=== PATIENT | female | born 1980 | race Caucasian/White ===

== ENCOUNTER 2016-08-02 15:54 | Emergency (ER) | payer SELFPAY ==
[~2016-08-02] VITALS: Ht 160 cm; Wt 68.0 kg
[~2016-08-02 15:54] MED LIST: BACT800T5 PO; FLAG500T PO
[2016-08-02 15:55] VITALS: BP 110/76; PULSE 62; RESP 14; TEMP 98.6; O2SAT 100
[2016-08-02 18:16] LABS: BLOOD, URINE NEG (NEG); COMMENT (UR) CULTURE INDICATED; CULTURE IF INDICATED CULTURE INDICATED; GLUCOSE,URINE NEG (NEG); KETONE, URINE NEG (NEG); MUCUS URINE FEW /lpf (OCC); NITRITE,URINE NEG (NEG); SQUAMOUS EPITHELIAL CELL URINE 2 /hpf (0-5); URINE COLOR YELLOW (YELLW/STRAW)
[2016-08-02] MEDS ORDERED: cefTRIAXone 250 MG VIAL IM ONE (18:30)
[2016-08-02] MEDS ORDERED: AZITHROMYCIN PWD FOR SUSP 1 GM PACKET PO ONE (18:30)
[2016-08-02] MEDS ORDERED: LIDOCAINE HCL 1% 50 ML VIAL IM ONE (18:30)
[2016-08-02] MEDS ORDERED: metroNIDAZOLE 500 MG TAB PO ONE (18:30)
[2016-08-02] MEDS ORDERED: ONDANSETRON ODT 4 MG TAB PO ONE (18:30)
[2016-08-02] MEDS ORDERED: DOXY100C PO (18:43)
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
[2016-08-02 19:48] LABS: CHLAMYDIA PCR NOT DETECTED (NOT DETECT); NEISSERIA PCR DETECTED (NOT DETECT)
== END 2016-08-02 18:50 | disposition home or self-care (01) ==
LOC: NETRI 15:54
DX: R10.84 Generalized abdominal pain (principal); N89.8 Other specified noninflammatory disorders of vagina; R53.81 Other malaise; N93.9 Abnormal uterine and vaginal bleeding, unspecified; F17.200 Nicotine dependence, unspecified, uncomplicated
CPT/HCPCS: 81001; 84703; 87086; 87210; 87491; 87591; 96372; 99284; J0696

== ENCOUNTER 2016-10-12 11:22 | Emergency (ER) | payer SELFPAY ==
[~2016-10-12] VITALS: Ht 160 cm; Wt 76.9 kg
[~2016-10-12 11:22] MED LIST changes: +DOXY100C PO
[2016-10-12 11:25] VITALS: BP 117/66; PULSE 66; RESP 14; TEMP 98; O2SAT 98
[2016-10-12 12:05] LABS: BLOOD, URINE NEG (NEG); COMMENT (UR) CULT NOT INDICATED; CULTURE IF INDICATED CULT NOT INDICATED; GLUCOSE,URINE NEG (NEG); KETONE, URINE NEG (NEG); MUCUS URINE FEW /lpf (OCC); NITRITE,URINE NEG (NEG); PH, URINE 6.5 (5.0-8.5); SQUAMOUS EPITHELIAL CELL URINE 4 /hpf (0-5); URINE COLOR YELLOW (YELLW/STRAW)
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
[2016-10-12] MEDS ORDERED: AZITHROMYCIN PWD FOR SUSP 1 GM PACKET PO ONE (14:00)
[2016-10-12] MEDS ORDERED: LIDOCAINE HCL 1% 50 ML VIAL IM ONE (14:00)
[2016-10-12] MEDS ORDERED: cefTRIAXone 250 MG VIAL IM ONE (14:00)
[2016-10-12 16:07] LABS: CHLAMYDIA PCR NOT DETECTED (NOT DETECT); NEISSERIA PCR NOT DETECTED (NOT DETECT)
== END 2016-10-12 14:53 | disposition home or self-care (01) ==
LOC: NEPB 11:22
DX: R10.30 Lower abdominal pain, unspecified (principal); F17.210 Nicotine dependence, cigarettes, uncomplicated
CPT/HCPCS: 81001; 84703; 87210; 87491; 87591; 96372; 99284; J0696

== ENCOUNTER 2017-02-24 13:58 | Emergency (ER) | payer SELFPAY ==
[2017-02-24 13:59] VITALS: BP 122/80; PULSE 93; RESP 16; TEMP 98.2; O2SAT 98
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
--- NOTE | 2017-02-24 15:10 | PD ---
HPI . rash on buttocks x few days Chief Complaint: Skin Problem Time Seen by Provider: 15:10 Travel History International Travel<30 days: No Contact w/Intl Traveler<30days: No Traveled to known affect area: No History of Present Illness HPI 36-year-old female with no significant past medical history other than drug use now in remission for 18 months here with complaints of a small blister-like rash to her left buttocks. Patient tells me that been there for proximally 2-3 days and has been causing some pain in that area. She denies any high risk sexual behaviors and reports sex with only her girlfriend. She also complains of an intermittent headache for the past 3 days. She initially rated the pain as 10/10, but tells me that it's more like 9/10 when it's at its peak. She misses some facial pressure. She denies any fever or chills. This is not the worst headache of life. She has no other complaints. PFSH Past Medical History Asthma: Yes Bipolar Disorder: Yes : 4 Para: 1 Miscarriage: 0 : 2 Social History Alcohol Use: No Tobacco Use: Yes (/2 PPD) Substance Use: No (H/O) Allergies-Medications (Allergen,Severity, Reaction): Coded Allergies: No Known Allergies (Verified , 10/12/16) Reported Meds & Prescriptions Reported Meds & Active Scripts Active Acyclovir 800 Mg Tab 800 Mg PO 5 TIMES A DAY 7 Days Review of Systems General / Constitutional: No: Fever Eyes: No: Visual changes HENT: Positive: Headaches Cardiovascular: No: Chest Pain or Discomfort Respiratory: No: Shortness of Breath Gastrointestinal: No: Abdominal Pain Genitourinary: No: Dysuria Musculoskeletal: No: Pain Skin: Positive Rash Neurologic: No: Weakness Psychiatric: No: Depression Endocrine: No: Polydipsia Hematologic/Lymphatic: No: Easy Bruising Physical Exam Narrative GENERAL: AAO x 3, no acute distress, Well-nourished, well-developed patient. SKIN: Warm and dry. Left buttocks there is a small quarter size area of coalesced blisters appear shingles like. No evidence of infection. HEAD: Normocephalic and atraumatic. EYES: No scleral icterus. No injection or drainage. EOM intact, PERRLA ENT: No nasal drainage noted. Mucous membranes pink. Airway patent. TM clear effusions bilaterally, no facial tenderness to palpation NECK: Supple, trachea midline. No JVD. No lymphadenopathy CARDIOVASCULAR: Regular rate and rhythm without murmurs, gallops, or rubs. RESPIRATORY: Breath sounds equal bilaterally. No accessory muscle use. No rhonchi or rales. No wheezing GASTROINTESTINAL: visual inspection normal EXTREMITIES: No cyanosis or edema. BACK: No obvious deformity. NEURO: CN II-12 intact, radio station engineer strength normal b/l, UE and LE 5/5, no focal deficits, PSYCH: AAO x 3, normal affect. Data Data Last Documented VS Vital Signs Date Time Temp Pulse Resp B/P Pulse Ox O2 Delivery O2 Flow Rate FiO2 02/24/17 13:59 98.2 93 16 122/80 98 Orders Ketorolac Inj (Toradol Inj) (02/24/17 15:15) [facility] Medical Decision Making Medical Screen Exam Complete: Yes Emergency Medical Condition: Yes Medical Record Reviewed: Yes Differential Diagnosis Shingles, less likely HSV-2, less likely cellulitis, sinus headache, cluster headache, tension headache Narrative Course 36-year-old female here with what appears to be shingles to her left buttocks. She also reports a headache and this seems more sinus related. On examination she does have some clear effusions in her TM. I've advised her that she can try some [id number] Tylenol, Motrin or Sudafed for relief. I advised her for headache returns or worsens, go to the nearest emergency department. I also recommend follow-up with primary care provider. She does appear to have shingles and I provided her with some antivirals upon discharge. We discussed modes of transmission. Patient verbalized understanding of instructions, questions were answered, and thanked me for their care. I advised them if their condition worsens, please return to the nearest emergency room for further care. Diagnosis Primary Impression: Shingles Qualified Code: B02.9 - Herpes zoster without complication Additional Impression: Sinus headache Patient Instructions: General Instructions Additional Instructions: Follow-up with your primary care provider as we discussed. Please return to emergency department if your symptoms return or worsen. Follow up with your primary care provider. Take medications as prescribed. You can use [id number] Motrin or Tylenol as needed for headache. You can also try some Sudafed to see if this helps improve your symptoms. Med/Other Pt SpecificInfo: Prescription(s) given Scripts Acyclovir 800 Mg [id number] Mg PO 5 TIMES A DAY 7 Days Ref 0 Prov:Cinthia Garcia MD 02/24/17 Disposition: 01 DISCHARGE HOME Condition: Stable Haily Juarez Feb 24, 2017 15:10
[2017-02-24] MEDS ORDERED: ACYC800T PO (15:12)
[2017-02-24] MEDS ORDERED: KETOROLAC TROMETHAMINE 60 MG/2 ML (IM) VIAL IM ONE (15:15)
== END 2017-02-24 15:31 | disposition home or self-care (01) ==
LOC: NEPD 13:58
DX: B02.9 Zoster without complications (principal); R51 Headache; J45.909 Unspecified asthma, uncomplicated; F31.9 Bipolar disorder, unspecified
CPT/HCPCS: 96372; 99284; J1885

== ENCOUNTER 2017-08-18 11:42 | Emergency (ER) | payer SELFPAY ==
[~2017-08-18] VITALS: Ht 160 cm; Wt 80.0 kg
[~2017-08-18 11:42] MED LIST changes: +ACYC800T PO; -BACT800T5 PO; -DOXY100C PO; -FLAG500T PO
[2017-08-18 11:43] VITALS: BP 116/74; PULSE 72; RESP 14; TEMP 98.2; O2SAT 98
--- NOTE | 2017-08-18 12:00 | PD ---
HPI Chief Complaint: Cold / Flu Symptoms Time Seen by Provider: 11:53 Travel History International Travel<30 days: No Contact w/Intl Traveler<30days: No Traveled to known affect area: No History of Present Illness HPI 37 year old female presents to the emergency department for evaluation of cold symptoms for 2 days. Patient reports subjective fevers, chills, cough for 2 days. Patient has no chronic medical problems and takes no prescribed medications. She does state that she was wheezing last night. Vital signs are stable. Mild severity. PFSH Past Medical History Asthma: Yes Bipolar Disorder: Yes Influenza Vaccination: No ?: Not : 4 Para: 1 Miscarriage: 0 : 2 Past Surgical History Surgical History: No Previous Surgery Social History Alcohol Use: No Tobacco Use: Yes (/2 PPD) Substance Use: No (H/O) Allergies-Medications (Allergen,Severity, Reaction): Coded Allergies: No Known Allergies (Verified Adverse Reaction, Unknown, 08/18/17) Reported Meds & Prescriptions Reported Meds & Active Scripts Active Acyclovir 800 Mg Tab 800 Mg PO 5 TIMES A DAY 7 Days Review of Systems Except as stated in HPI: all other systems reviewed are Neg Physical Exam Narrative GENERAL: Well-nourished, well-developed female patient, ambulatory. Afebrile. SKIN: Focused skin assessment warm/dry. HEAD: Normocephalic. Atraumatic. EYES: No scleral icterus. No injection or drainage. NECK: Supple, trachea midline. No JVD or lymphadenopathy. CARDIOVASCULAR: Regular rate and rhythm without murmurs, gallops, or rubs. RESPIRATORY: Breath sounds equal bilaterally. No accessory muscle use. Lungs sounds are clear to auscultation. GASTROINTESTINAL: Abdomen soft, non-tender, nondistended. MUSCULOSKELETAL: No cyanosis, or edema. BACK: Nontender without obvious deformity. No CVA tenderness. Data Data Last Documented VS Vital Signs Date Time Temp Pulse Resp B/P (MAP) Pulse Ox O2 Delivery O2 Flow Rate FiO2 08/18/17 13:01 08/18/17 11:43 98.2 72 14 98 Orders Orders Influenzae A/B Antigen (08/18/17 11:57) Ed Discharge Order (08/18/17 13:01) MDM Medical Decision Making Medical Screen Exam Complete: Yes Emergency Medical Condition: Yes Medical Record Reviewed: Yes Differential Diagnosis URI versus influenza versus bronchitis Narrative Course 37-year-old female presents to the emergency department for evaluation of cold symptoms for 2 days. Patient does appear well exam. Influenza swab is ordered and pending. Influenza is negative. Symptoms and physical are consistent with a viral upper respiratory infection. Patient will be discharged prescription for albuterol inhaler due to her wheezing at night. Patient is stable for discharge. She is to follow-up with her primary care physician. The patient was discharged in stable condition with instructions, including return instructions and follow up instructions. Diagnosis Primary Impression: Viral upper respiratory illness Referrals: Primary Care Physician call for appointment Patient Instructions: General Instructions, Upper Respiratory Infection (ED) Departure Forms: Tests/Procedures, Work Release Enter return to work date: Aug 20, 2017 Additional Instructions: Rest. Drink plenty of fluids. Tylenol/Motrin [id number] as needed for fever/pain. Use albuterol inhaler as directed as needed for shortness of breath/wheezing. Follow-up with your primary care physician. Return to the emergency department for any acute worsening of symptoms. Med/Other Pt SpecificInfo: Prescription(s) given Scripts Albuterol 18 GM Inh (Ventolin Hfa 18 GM Inh) 90 Mcg/Act Aer 2 PUFF INH Q4-6H Y for SHORTNESS OF BREATH, #1 INHALER 0 Refills Prov: Inessa Arriola 08/18/17 Disposition: 01 DISCHARGE HOME Condition: Stable Inessa Arriola Aug 18, 2017 12:00
[2017-08-18] MEDS ORDERED: VENTAER INH (13:03)
== END 2017-08-18 13:11 | disposition home or self-care (01) ==
LOC: NEPD 11:42
DX: J06.9 Acute upper respiratory infection, unspecified (principal); F17.200 Nicotine dependence, unspecified, uncomplicated
CPT/HCPCS: 87804; 99283

== ENCOUNTER 2017-10-03 06:33 | Emergency (ER) | payer SELFPAY ==
[~2017-10-03] VITALS: Ht 160 cm; Wt 81.5 kg
[~2017-10-03 06:33] MED LIST changes: +VENTAER INH
[2017-10-03 06:36] VITALS: BP 120/60; PULSE 77; RESP 16; TEMP 98.1; O2SAT 100
--- NOTE | 2017-10-03 07:24 | PD ---
HPI Chief Complaint: Skin Problem Time Seen by Provider: 07:10 Travel History International Travel<30 days: No Contact w/Intl Traveler<30days: No Traveled to known affect area: No History of Present Illness HPI 37-year-old female presents to the emergency room for evaluation of right foot pain after stepping on a carpet tack 2 days ago. Patient has been keeping the wound clean and dry. She has been applying triple antibiotic ointment. States she had to call out of work today because it was too painful to step on. She denies any drainage, redness, or warmth from the area. Denies fever or chills. No history of diabetes. No other chronic medical conditions or daily medications. Unknown last tetanus. PFSH Past Medical History Asthma: Yes Bipolar Disorder: Yes ?: Not : 3 Para: 1 Miscarriage: 0 : 2 Social History Alcohol Use: No Tobacco Use: Yes (/ PPD) Substance Use: No (H/O) Allergies-Medications (Allergen,Severity, Reaction): Coded Allergies: No Known Allergies (Verified Adverse Reaction, Unknown, 10/03/17) Reported Meds & Prescriptions Reported Meds & Active Scripts Active No Active Prescriptions or Reported Medications Review of Systems Except as stated in HPI: all other systems reviewed are Neg Physical Exam Narrative GENERAL: Well-nourished, well-developed female in no acute distress. Afebrile. Ambulatory. SKIN: Focused skin assessment warm/dry. There is a 3 mm superficial laceration to the plantar aspect of the right foot. No drainage, fluctuance, or induration. No foreign body. No erythema or lymphangitis. No increased warmth. Mildly tender to palpation. HEAD: Normocephalic. EYES: No scleral icterus. No injection or drainage. NECK: Supple, trachea midline. No JVD or lymphadenopathy. CARDIOVASCULAR: Regular rate and rhythm without murmurs, gallops, or rubs. RESPIRATORY: Breath sounds equal bilaterally. No accessory muscle use. MSK: No edema. Less than 2 second capillary refill distally. Data Data Last Documented VS Vital Signs Date Time Temp Pulse Resp B/P (MAP) Pulse Ox O2 Delivery O2 Flow Rate FiO2 10/03/17 06:36 98.1 77 16 120/60 (80) 100 Room Air Orders Orders Tetanus/Diphtheria Tox Adult (Tetanus/Di (10/03/17 07:30) MDM Medical Decision Making Medical Screen Exam Complete: Yes Emergency Medical Condition: Yes Medical Record Reviewed: Yes Differential Diagnosis Laceration, contusion, infection, puncture wound Narrative Course 37-year-old female presents to the emergency room for evaluation of laceration to the bottom of her right foot after stepping on a carpet tack 2 days ago. There is a 3 mm superficial laceration to the plantar aspect of the right foot. No drainage, fluctuance, or induration. No foreign body. No erythema or lymphangitis. No increased warmth. Mildly tender to palpation. Patient updated on tetanus. Told to follow-up with a primary care physician or return for worsening symptoms. She understands and agrees to plan. Diagnosis Primary Impression: Puncture wound of foot Qualified Codes: S91.331A - Puncture wound without foreign body, right foot, initial encounter Referrals: Primary Care Physician Additional Instructions: Keep wound clean and dry. Follow-up with a primary care physician. Return for worsening symptoms. Scripts No Active Prescriptions or Reported Meds Disposition: 01 DISCHARGE HOME Condition: Stable Yadi Stover Oct 03, 2017 07:24
[2017-10-03] MEDS ORDERED: TETANUS/DIPHTHERIA TOXOID ADULT 0.5 ML VIAL IM ONE (07:30)
== END 2017-10-03 07:54 | disposition home or self-care (01) ==
LOC: NEPD 06:33
DX: S91.331A Puncture wound without foreign body, right foot, initial encounter (principal); J45.909 Unspecified asthma, uncomplicated; F31.9 Bipolar disorder, unspecified; F17.210 Nicotine dependence, cigarettes, uncomplicated; W22.8XXA Striking against or struck by other objects, initial encounter; Z23 Encounter for immunization
CPT/HCPCS: 90471; 90714

== ENCOUNTER 2017-11-28 18:34 | Emergency (ER) | payer SELFPAY ==
[2017-11-28 18:42] VITALS: BP 137/72; PULSE 122; RESP 18; O2SAT 97
[2017-11-28] MEDS ORDERED: SODIUM CHLORID 0.9% 500 ML INJ 500 ML IV ONE (18:45)
[2017-11-28] MEDS ORDERED: AMPICILLIN-SULBACTAM INJ 3 GM in SODIUM CHLORIDE 0.9% INJ 100 ML IV ONE (18:45)
[2017-11-28] MEDS ORDERED: ONDANSETRON HCL 4 MG/2 ML VIAL IV PUSH ONE (18:45)
[2017-11-28] MEDS ORDERED: MORPHINE SULFATE 4 MG/ML INJ IV PUSH ONE ×2 (18:45→19:15)
[2017-11-28] MEDS ORDERED: LIDOCAINE HCL 1% PF 30 ML VIAL INFIL ONE ×2 (19:00→21:15)
[2017-11-28] MEDS ORDERED: MORPHINE SULFATE 2 MG/ML SYRINGE IV PUSH ONE (19:00)
[2017-11-28 19:31] LABS: AUTOMATED NEUTROPHIL # 5.6 TH/MM3 (1.8-7.7); BASOPHIL # 0.1 TH/MM3 (0-0.2); BASOPHIL % 0.6 % (0.0-2.0); EOSINOPHIL # 0.2 TH/MM3 (0-0.4); EOSINOPHIL % 1.9 % (0.0-4.0); HEMATOCRIT 39.1 % (35.0-46.0); HEMOGLOBIN 13.1 GM/DL (11.6-15.3); LYMPH % 38.1 % (9.0-44.0); LYMPHOCYTE # 4.3 TH/MM3 (1.0-4.8); MEAN CELL VOLUME 86.3 FL (80.0-100.0); MEAN CORPUSCULAR HGB CONC 33.6 % (32.0-36.0); MEAN PLATELET VOLUME 8.9 FL (7.0-11.0); MONO % 9.5 % (0.0-8.0); MONOCYTE # 1.1 TH/MM3 (0-0.9); NEUT % 49.9 % (16.0-70.0); PLATELET COUNT 296 TH/MM3 (150-450); RED BLOOD COUNT 4.53 MIL/MM3 (4.00-5.30); RED CELL DISTRIBUTION WIDTH 14.5 % (11.6-17.2); WHITE BLOOD COUNT 11.2 TH/MM3 (4.0-11.0)
--- NOTE | 2017-11-28 19:35 | PD ---
HPI Chief Complaint: Bite or Sting Time Seen by Provider: 18:42 Travel History International Travel<30 days: No Contact w/Intl Traveler<30days: No Traveled to known affect area: No History of Present Illness HPI 37-year-old female that presents to the ED for evaluation of dog bite. Patient was brought here by private vehicle for evaluation of this. Patient reports that she was bit by her own dog who is a palpable of 11 months of age. Per patient the dogs not vaccinated but has been taking care of the dog since being a puppy. She reports this happened less than an hour before coming. She has multiple bite wounds to the right arm as well as the left hand and the left leg. Unclear as to what happened to cause the dog to be aggressive. Per patient this has never happened before. Per patient she has had her tetanus booster. She has a pain out of 10 out of 10 especially on the right arm. Patient does have significant wounds to the right arm compared to the other wounds. Most significantly there is no evidence of the forearm as well as the medial arm. Minimal bleeding noted. Patient able to move all extremities but with with some discomfort. No allergies to medication. PFSH Past Medical History Asthma: Yes Bipolar Disorder: Yes ?: Unknown : 3 Para: 1 Miscarriage: 0 : 2 Past Surgical History Surgical History: No Previous Surgery Social History Alcohol Use: No Tobacco Use: Yes (/2 PPD) Substance Use: No (H/O) Allergies-Medications (Allergen,Severity, Reaction): Coded Allergies: No Known Allergies (Verified Adverse Reaction, Unknown, 10/03/17) Reported Meds & Prescriptions Reported Meds & Active Scripts Active Hydrocodone-Acetamin 5-325 mg (Hydrocodone/Acetaminophen) 5 Mg-325 Mg Tablet 1 Tab PO Q6HR PRN Augmentin (Amoxicillin-Clavulanate) 875-125 Mg Tab 1 Tab PO BID [address] (Diclofenac Sodium) 75 Mg Tabdr 75 Mg PO BID PRN Review of Systems Except as stated in HPI: all other systems reviewed are Neg Physical Exam Narrative GENERAL: SKIN: Warm and dry. HEAD: Atraumatic. Normocephalic. EYES: Pupils equal and round. No scleral icterus. No injection or drainage. ENT: No nasal bleeding or discharge. Mucous membranes pink and moist. Tongue is midline. No uvula deviation. NECK: Trachea midline. No JVD. CARDIOVASCULAR: Regular rate and rhythm. No murmurs, S3, s4. RESPIRATORY: No accessory muscle use. Clear to auscultation. Breath sounds equal bilaterally. GASTROINTESTINAL: Abdomen soft, non-tender, nondistended. Hepatic and splenic margins not palpable. MUSCULOSKELETAL: Extremities without clubbing, cyanosis, or edema. No obvious deformities. Full range of motion of the upper and lower extremities bilaterally. Patient has multiple wounds to different extremities. Patient does have 1 less than half a centimeter dog bite to the dorsal aspect of the mid left hand with full range of motion of all fingers. Some pain with flexion but able to do so. Patient has 2 small less than half centimeter bite wounds to the left leg. Bruising and swelling noted. Minimal bleeding noted. Patient has 1 big laceration/bite wound to the right forearm which is about 6 cm and about 1 cm deep. No sign of tendon, muscle, vessel or nerve damage. No sign of tendon, vessel or nerve damage noted. Patient has 2 lacerations/dog bites to the posterior upper arm which are about 4-5 cm each with some fatty tissue exposed but less than half a centimeter deep. Patient able to move all fingers. 2+ pulses in the radial and ulnar pulses. No obvious sign of tendon or nerve damage. NEUROLOGICAL: Awake and alert. No obvious cranial nerve deficits. Motor grossly within normal limits. Five out of 5 muscle strength in the arms and legs. Normal speech. PSYCHIATRIC: Appropriate mood and affect; insight and judgment normal. Data Data Last Documented VS Vital Signs Date Time Temp Pulse Resp B/P (MAP) Pulse Ox O2 Delivery O2 Flow Rate FiO2 11/28/17 18:42 122 18 137/72 (93) 97 Orders Orders Morphine Inj (Morphine Inj) (11/28/17 18:45) Ondansetron Inj (Zofran Inj) (11/28/17 18:45) Ampicillin-Sulbactam Inj (Unasyn Inj) (11/28/17 18:45) Femur (Ap & Lat/2vws) (11/28/17 18:43) Forearm (2vws) (11/28/17 18:43) Hand, Complete ([id number]) (11/28/17 18:43) Ice/Cold Pack (11/28/17 18:43) Complete Blood Count With Diff (11/28/17 18:43) Basic Metabolic Panel (Bmp) (11/28/17 18:43) Prothrombin Time / Inr (Pt) (11/28/17 18:43) Act Partial Throm Time (Ptt) (11/28/17 18:43) Magnesium (Mg) (11/28/17 18:43) Iv Access Insert/Monitor (11/28/17 18:43) Humerus (Min 2vws) (11/28/17 ) Sodium Chlorid 0.9% 500 Ml Inj (Ns 500 M (11/28/17 18:45) Lidocaine Pf 1% Inj (Xylocaine-Mpf 1% In (11/28/17 19:00) Morphine Inj (Morphine Inj) (11/28/17 19:15) Midazolam Inj (Versed Inj) (11/28/17 20:13) Lidocaine Pf 1% Inj (Xylocaine-Mpf 1% In (11/28/17 21:15) Lidocaine 1% Inj (Xylocaine 1% Inj) (11/28/17 21:15) Hydromorphone Pf Inj (Dilaudid Pf Inj) (11/28/17 21:30) Ed Discharge Order (11/28/17 22:14) Wound Care (11/28/17 22:15) Labs Laboratory Tests Test 11/28/17 19:05 White Blood Count 11.2 TH/MM3 Red Blood Count 4.53 MIL/MM3 Hemoglobin 13.1 GM/DL Hematocrit 39.1 % Mean Corpuscular Volume 86.3 FL Mean Corpuscular Hemoglobin 29.0 PG Mean Corpuscular Hemoglobin Concent 33.6 % Red Cell Distribution Width 14.5 % Platelet Count 296 TH/MM3 Mean Platelet Volume 8.9 FL Neutrophils (%) (Auto) 49.9 % Lymphocytes (%) (Auto) 38.1 % Monocytes (%) (Auto) 9.5 % Eosinophils (%) (Auto) 1.9 % Basophils (%) (Auto) 0.6 % Neutrophils # (Auto) 5.6 TH/MM3 Lymphocytes # (Auto) 4.3 TH/MM3 Monocytes # (Auto) 1.1 TH/MM3 Eosinophils # (Auto) 0.2 TH/MM3 Basophils # (Auto) 0.1 TH/MM3 CBC Comment DIFF FINAL Differential Comment Prothrombin Time 10.2 SEC Prothromb Time International Ratio 1.0 RATIO Activated Partial Thromboplast Time 24.3 SEC Blood Urea Nitrogen 16 MG/DL Creatinine 0.89 MG/DL Random Glucose 113 MG/DL Calcium Level 9.0 MG/DL Magnesium Level 2.0 MG/DL Sodium Level 140 MEQ/L Potassium Level 3.4 MEQ/L Chloride Level 107 MEQ/L Carbon Dioxide Level 16.2 MEQ/L Anion Gap 17 MEQ/L Estimat Glomerular Filtration Rate 71 ML/MIN MDM Medical Decision Making Medical Screen Exam Complete: Yes Emergency Medical Condition: Yes Medical Record Reviewed: Yes Interpretation(s) CBC & BMP Diagram 11/28/17 19:05 Calcium Level 9.0, Magnesium Level 2.0 Last Impressions Radius/Ulna X-Ray 11/28/[id number] Signed Impressions: Service Date/Time: Tuesday, November 28, 2017 19:41 - CONCLUSION: Soft tissue injury and laceration. Daryl Diamond MD Hand X-Ray 11/28/171842 Signed Impressions: Service Date/Time: Tuesday, November 28, 2017 19:37 - CONCLUSION: No acute disease. Daryl Diamond MD Femur X-Ray 11/28/171842 Signed Impressions: Service Date/Time: Tuesday, November 28, 2017 19:32 - CONCLUSION: No acute disease. Daryl Diamond MD Humerus X-Ray 11/28/17 0000 Signed Impressions: Service Date/Time: Tuesday, November 28, 2017 19:27 - CONCLUSION: No acute disease. Daryl Diamond MD Differential Diagnosis Dog bite versus lacerations versus abrasions versus fractures versus normal exam Narrative Course 37-year-old female that presents to the ED for evaluation of dog bite to multiple areas. Patient was properly examined and was found to have signs and symptoms consistent with significant dog bites. Mainly to the right arm. Dog bites to the left hand and leg appear to be more benign and my attending Dr. Thorne agrees that no suturing needed at the bite wounds and there is an increased chance of infection. Patient was started on Unasyn as well as given IV pain medications. Wounds on the right arm will have to be sutured. There is no sign of tendon, vessel, nerve damage. My attending Dr. Thorne evaluated the patient and agrees with this. Labs and imaging showed no sign of acute disease. After explaining procedures to the patient and she agreed to lacerations on the right arm were repaired stating procedure note. Patient tolerated procedure well. Patient was told that there is going to be a high likelihood of scarring secondary to the amount of wounds that she has and the size of them as well as being bites. I do recommend close follow-up in the next 48 hours for recheck. Patient understands and agrees. Patient understands that she needs to come back on Sunday night or Sunday morning for a recheck. She will given a note for work. She was given a prescription for Augmentin, diclofenac sodium and Lortab. She was instructed that if anything worsens she is to come back to the ED. Wound care was endorsed. See ED if worsening symptoms. Ice to the areas of pain. On regards to the dog's vaccination status this is the patient's dog. Animal control is already involved and actually have the dog with them and will evaluate the dog for possible rabies. If there is concern patient understands that there will be called and notified to get rabies vaccine. Procedures Procedure Narrative LACERATION LOCATION: right arm LENGTH: 8 cm NUMBER OF STITCHES/SUZAN: 13 sutures REPAIR: The area of the laceration was prepped with Betadine and sterilely draped. The laceration was infiltrated with 1% Xylocaine. The wound was copiously irrigated and explored without evidence of foreign body, tendon injury or neurovascular injury. The wound was closed using 3-0 Ethilone. This was a 1 layer repair. A sterile dressing was applied. The patient was advised to keep the dressing clean and dry. Patient tolerated the procedure well. LACERATION LOCATION: right arm LENGTH: 2 cm NUMBER OF STITCHES/SUZAN: 3 sutures REPAIR: The area of the laceration was prepped with Betadine and sterilely draped. The laceration was infiltrated with 1% Xylocaine. The wound was copiously irrigated and explored without evidence of foreign body, tendon injury or neurovascular injury. The wound was closed using 3-0 Ethilone. This was a 1 layer repair. A sterile dressing was applied. The patient was advised to keep the dressing clean and dry. Patient tolerated the procedure well. LACERATION LOCATION: right arm LENGTH: 5 cm NUMBER OF STITCHES/SUZAN: 4 sutures REPAIR: The area of the laceration was prepped with Betadine and sterilely draped. The laceration was infiltrated with 1% Xylocaine. The wound was copiously irrigated and explored without evidence of foreign body, tendon injury or neurovascular injury. The wound was closed using 3-0 Ethilone. This was a 1 layer repair. A sterile dressing was applied. The patient was advised to keep the dressing clean and dry. Patient tolerated the procedure well. LACERATION LOCATION: right arm LENGTH: 4 NUMBER OF STITCHES/SUZAN: 4 sutures REPAIR: The area of the laceration was prepped with Betadine and sterilely draped. The laceration was infiltrated with 1% Xylocaine. The wound was copiously irrigated and explored without evidence of foreign body, tendon injury or neurovascular injury. The wound was closed using 3-0 Ethilone. This was a 1 layer repair. A sterile dressing was applied. The patient was advised to keep the dressing clean and dry. Patient tolerated the procedure well. LACERATION LOCATION: right arm LENGTH: 5 cm NUMBER OF STITCHES/SUZAN: 5 sutures REPAIR: The area of the laceration was prepped with Betadine and sterilely draped. The laceration was infiltrated with 1% Xylocaine. The wound was copiously irrigated and explored without evidence of foreign body, tendon injury or neurovascular injury. The wound was closed using 3-0 Ethilone. This was a 1 layer repair. A sterile dressing was applied. The patient was advised to keep the dressing clean and dry. Patient tolerated the procedure well. LACERATION LOCATION: right arm LENGTH: 1 cm NUMBER OF STITCHES/SUZAN: 2 sutures REPAIR: The area of the laceration was prepped with Betadine and sterilely draped. The laceration was infiltrated with 1% Xylocaine. The wound was copiously irrigated and explored without evidence of foreign body, tendon injury or neurovascular injury. The wound was closed using 3-0 Ethilone. This was a 1 layer repair. A sterile dressing was applied. The patient was advised to keep the dressing clean and dry. Patient tolerated the procedure well. LACERATION LOCATION: right arm LENGTH: 8 cm NUMBER OF STITCHES/SUZAN: 3 sutures REPAIR: The area of the laceration was prepped with Betadine and sterilely draped. The laceration was infiltrated with 1% Xylocaine. The wound was copiously irrigated and explored without evidence of foreign body, tendon injury or neurovascular injury. The wound was closed using 3-0 Ethilone. This was a 1 layer repair. A sterile dressing was applied. The patient was advised to keep the dressing clean and dry. Patient tolerated the procedure well. Diagnosis Primary Impression: Dog bite Qualified Codes: W54.0XXA - Bitten by dog, initial encounter Additional Impression: Lacerations of multiple sites of right arm Qualified Codes: S41.111A - Laceration without foreign body of right upper arm , initial encounter Patient Instructions: General Instructions, Narcotic given in the ED Departure Forms: Tests/Procedures, Work Release Enter return to work date: December 01, 2017 Additional Instructions: Wound care daily with soap and water. You can apply bandaid if needed. Neosporyn or OTC antibiotic ointment to area as needed twice a day for at least 2 weeks to help with scarring and prevent infection. Meoderma OTC for scarring if needed. Avoid sun exposure for 2 months as the sun could make scar darker and more noticeable. Get sutures removed in 14 days. See ED if worst. Get rechecked on sunday night or sunday morning. Do not drink or drive while taking pain meds. Ice to the areas of pain to help with swelling and pain. Any signs of infection like redness or pus come back to ED. Med/Other Pt SpecificInfo: Prescription(s) given, Wound Care Scripts Hydrocodone/Acetaminophen (Hydrocodone-Acetamin 5-325 mg) 5 Mg-325 Mg Tablet 1 TAB PO Q6HR Y for PAIN SCALE 1 TO 10, #14 Prov: Clary Valentine MD 11/28/17 Amoxicillin-Clavulanate (Augmentin) 875-125 Mg Tab 1 TAB PO BID for Infection for 7 Days, #14 TAB 0 Refills Prov: Brigido Thorne MD 11/28/[address] (Diclofenac Sodium DR) 75 Mg Tabdr 75 MG PO BID Y for PAIN SCALE 1 TO 10, #20 TAB 0 Refills Prov: Brigido Thorne MD 11/28/17 Disposition: 01 DISCHARGE HOME Condition: Johnnie Paiz November 28, 2017 19:34
[2017-11-28 19:36] LABS: PROTHROMBIN TIME - PATIENT 10.2 SEC (9.8-11.6)
[2017-11-28 19:41] LABS: BICARBONATE 16.2 MEQ/L (21.0-32.0); CREATININE 0.89 MG/DL (0.50-1.00)
--- NOTE | 2017-11-28 19:59 | RADRPT ---
EXAM DATE/TIME: 11/28/2017 19:27 [facility] COMPARISON: No previous studies available for comparison. INDICATIONS : Right humerus pain post dog bite. MEDICAL HISTORY : None. SURGICAL HISTORY : None. ENCOUNTER: Initial ACUITY: 1 day PAIN SCORE: 10/10 LOCATION: Right humerus. FINDINGS: Two view examination of the right humerus demonstrates no evidence of fracture or dislocation. There is cystic change at the superior lateral right humeral head. There are some hypertrophic change at t he undersurface of the distal clavicle at the coracoclavicular ligament attachment region. Bony cloth examiner hand alization is normal. The soft tissue structures are intact. CONCLUSION: No acute disease. Daryl Diamond MD on November 28, 2017 at 19:56 Board Certified Radiologist. This report was verified electronically.
--- NOTE | 2017-11-28 20:02 | RADRPT ---
EXAM DATE/TIME: 11/28/2017 19:32 [facility] COMPARISON: No previous studies available for comparison. INDICATIONS : Left femur pain post dog bite. MEDICAL HISTORY : None. SURGICAL HISTORY : None. ENCOUNTER: Initial ACUITY: 1 day PAIN SCORE: 10/10 LOCATION: Left femur. FINDINGS: Two view examination of the left femur demonstrates no evidence of fracture or dislocation. Bony min eralization is normal. The soft tissue structures are intact. CONCLUSION: No acute disease. Daryl Diamond MD on November 28, 2017 at 20:00 Board Certified Radiologist. This report was verified electronically.
--- NOTE | 2017-11-28 20:08 | RADRPT ---
EXAM DATE/TIME: 11/28/2017 19:41 [facility] COMPARISON: No previous studies available for comparison. INDICATIONS : Right forearm pain post dog bite. MEDICAL HISTORY : None. SURGICAL HISTORY : None. ENCOUNTER: Initial ACUITY: 1 day PAIN SCORE: 10/10 LOCATION: Right mid forearm. FINDINGS: Two view examination of the right forearm demonstrates soft tissue injury at the mid and distal forea rm posteriorly. In addition to the laceration, air seen within the subcutaneous tissues. The bony str uctures are intact. There is a 2 mm oval calcific density seen at the dorsal mid forearm seen on the lateral view. This appears either superficial or on the dressing on the AP view. CONCLUSION: Soft tissue injury and laceration. Daryl Diamond MD on November 28, 2017 at 20:04 Board Certified Radiologist. This report was verified electronically.
--- NOTE | 2017-11-28 20:11 | RADRPT ---
EXAM DATE/TIME: 11/28/2017 19:37 [facility] COMPARISON: No previous studies available for comparison. INDICATIONS : Left hand pain post dog bite. MEDICAL HISTORY : None. SURGICAL HISTORY : None. ENCOUNTER: Initial ACUITY: 1 day PAIN SCORE: 10/10 LOCATION: Left hand. FINDINGS: Three view examination of the left hand demonstrates no soft tissue swelling, dislocation, or fractur e. The carpal bones appear intact. There is chronic cystic change seen in the distal scaphoid. The interphalangeal and metacarpophalangeal joints are intact. Bony mineralization is normal. CONCLUSION: No acute disease. Daryl Diamond MD on November 28, 2017 at 20:08 Board Certified Radiologist. This report was verified electronically.
[2017-11-28] MEDS ORDERED: MIDAZOLAM HCL 5 MG/ML VIAL (1 ML) IV STA (20:13)
[2017-11-28] MEDS ORDERED: LIDOCAINE HCL 1% 30 ML VIAL INFIL ONE (21:15)
[2017-11-28] MEDS ORDERED: HYDROmorphone HCL PF 0.5 MG/0.5 ML SYRINGE IV PUSH ONE (21:30)
[2017-11-28] MEDS ORDERED: HYDR-3516 PO (22:11)
[2017-11-28] MEDS ORDERED: AUGM875T3 PO (22:11)
[2017-11-28] MEDS ORDERED: DICL75TA PO (22:11)
== END 2017-11-28 23:21 | disposition home or self-care (01) ==
LOC: NEPE 18:34
DX: S41.151A Open bite of right upper arm, initial encounter (principal); F17.200 Nicotine dependence, unspecified, uncomplicated; W54.0XXA Bitten by dog, initial encounter
CPT/HCPCS: 12007; 73060; 73090; 73130; 73552; 80048; 83735; 85025; 85610; 85730; 96365; 96375; 99284; J0295; J1170; J2250; J2270; J2405; J7040

== ENCOUNTER 2017-12-01 10:36 | Emergency (ER) | payer SELFPAY ==
[~2017-12-01 10:36] MED LIST changes: -ACYC800T PO; +AUGM875T3 PO; +DICL75TA PO; +HYDR-3516 PO; -VENTAER INH
[2017-12-01 10:39] VITALS: BP 112/68; PULSE 72; RESP 14; TEMP 98.9; O2SAT 99
--- NOTE | 2017-12-01 11:05 | PD ---
HPI . Recheck Chief Complaint: Wound/Suture/Staple Re-Check Time Seen by Provider: 10:53 Travel History International Travel<30 days: No Contact w/Intl Traveler<30days: No Traveled to known affect area: No History of Present Illness HPI This patient is here for a scheduled recheck of multiple dog bites. She was seen here initially on 11/28. Her wounds on her right upper extremity were quite severe and were subsequently sutured. The remaining wounds were left open to drain. She was placed on prophylactic antibiotics and has been compliant with these. She does report some soreness especially in her right upper extremity but no fevers. The pain in her right upper extremity is rated 8/10 and is exacerbated by movement of her wrist. PFSH Past Medical History Asthma: Yes Bipolar Disorder: Yes ?: Not : 3 Para: 1 Miscarriage: 0 : 2 Past Surgical History Surgical History: No Previous Surgery Social History Alcohol Use: No Tobacco Use: Yes (/2 PPD) Substance Use: No (H/O) Allergies-Medications (Allergen,Severity, Reaction): Coded Allergies: No Known Allergies (Verified Adverse Reaction, Unknown, 12/01/17) Reported Meds & Prescriptions Reported Meds & Active Scripts Active Hydrocodone-Acetamin 5-325 mg (Hydrocodone/Acetaminophen) 5 Mg-325 Mg Tablet 1 Tab PO Q6HR PRN Augmentin (Amoxicillin-Clavulanate) 875-125 Mg Tab 1 Tab PO BID [address] (Diclofenac Sodium) 75 Mg Tabdr 75 Mg PO BID PRN Review of Systems Except as stated in HPI: all other systems reviewed are Neg Physical Exam Narrative GENERAL: Awake and alert and in no acute distress. SKIN: Warm and dry. Multiple wounds on her right upper extremity, left upper extremity and left lower extremity. Only the wounds on the right upper extremity have been sutured. All wounds look good. There is no purulent drainage. The surrounding skin is not red or hot. She does have some associated bruising on the left leg. HEAD: Normocephalic/atraumatic. EYES: Pupils are equal. Extraocular movements are intact. NECK: Normal range of motion. CARDIOVASCULAR: Regular rate and rhythm. RESPIRATORY: Nonlabored respirations. MUSCULOSKELETAL: Atraumatic. NEUROLOGICAL: Nonfocal. PSYCHIATRIC: Appropriate mood and affect. Data Data Last Documented VS Vital Signs Date Time Temp Pulse Resp B/P (MAP) Pulse Ox O2 Delivery O2 Flow Rate FiO2 12/01/17 10:39 98.9 72 14 112/68 (83) 99 Orders Orders Wound Care (12/01/17 11:01) Ed Discharge Order (12/01/17 11:01) MDM Medical Decision Making Medical Screen Exam Complete: Yes Emergency Medical Condition: Yes Medical Record Reviewed: Yes (Record from 11/28 was reviewed.) Differential Diagnosis Differential diagnosis includes but is not limited to routine healing, localized wound infection, cellulitis, sepsis Narrative Course This patient presents for routine wound check. She is status post multiple dog bites on 11/28. She has been compliant with her antibiotics. Her wounds look good with no signs of infection today. The patient has been instructed in routine wound care. She is to wash all wounds twice daily with liquid antibiotic soap and water. She is to then cover all wounds with Neosporin ointment and dressed slightly. Her next follow-up will be in 5 days. Diagnosis Primary Impression: Dog bite Qualified Codes: W54.0XXD - Bitten by dog, subsequent encounter Patient Instructions: General Instructions Departure Forms: Tests/Procedures Additional Instructions: Wash wounds twice daily with Dial soap and water. Then apply a thin layer of Neosporin ointment. Dressed lightly so that the wounds can air. Return for recheck next . Disposition: 01 DISCHARGE HOME Condition: Stable Becca Ballard MD December 01, 2017 11:05
== END 2017-12-01 12:12 | disposition home or self-care (01) ==
LOC: NEPC 10:36
DX: S41.151D Open bite of right upper arm, subsequent encounter (principal); W54.0XXD Bitten by dog, subsequent encounter
CPT/HCPCS: 99281

== ENCOUNTER 2017-12-06 12:31 | Emergency (ER) | payer SELFPAY ==
[~2017-12-06] VITALS: Ht 160 cm; Wt 85.0 kg
[2017-12-06 12:38] VITALS: PULSE 78; RESP 18; TEMP 98.6; O2SAT 98
[2017-12-06 13:45] VITALS: BP 110/74; PULSE 68; RESP 18; O2SAT 100
[2017-12-06] MEDS ORDERED: NORC5TAB PO (14:02)
[2017-12-06] MEDS ORDERED: DICL75TA PO (14:02)
--- NOTE | 2017-12-06 14:03 | PD ---
HPI Chief Complaint: Wound/Suture/Staple Re-Check Time Seen by Provider: 13:43 Travel History International Travel<30 days: No Contact w/Intl Traveler<30days: No Traveled to known affect area: No History of Present Illness HPI 37-year-old female presents to the emergency department for evaluation of dog bite to her bilateral arms and left leg. Patient sustained dog bites on November 28, 2017 by her own dog. She was sutured and placed on antibiotics. She returned on December 01 for recheck. She was instructed to come back today for another recheck. Patient reports pain to the right upper arm. Current pain is 8/10, aching and throbbing. She states the pain is worse at night as she is out of her pain medication. Patient also needs a note for light duty at work. Patient denies any fevers or chills. No other symptoms or complaints at this time. PFSH Past Medical History Asthma: Yes Bipolar Disorder: Yes ?: Not : 3 Para: 1 Miscarriage: 0 : 2 Social History Alcohol Use: No Tobacco Use: Yes (/2 PPD) Substance Use: No (H/O) Allergies-Medications (Allergen,Severity, Reaction): Coded Allergies: No Known Allergies (Verified Adverse Reaction, Unknown, 12/06/17) Reported Meds & Prescriptions Reported Meds & Active Scripts Active Hydrocodone-Acetamin 5-325 mg (Hydrocodone/Acetaminophen) 5 Mg-325 Mg Tablet 1 Tab PO Q6HR PRN Augmentin (Amoxicillin-Clavulanate) 875-125 Mg Tab 1 Tab PO BID [address] (Diclofenac Sodium) 75 Mg Tabdr 75 Mg PO BID PRN Review of Systems Except as stated in HPI: all other systems reviewed are Neg Physical Exam Narrative GENERAL: Well-nourished, well-developed female patient, ambulatory. Afebrile SKIN: Focused skin assessment warm/dry. Patient has multiple sutured, healing lacerations to the right upper extremity. No surrounding erythema or drainage. No evidence of infection. She does have ecchymosis around the dog bite to the right upper arm. Tissues are soft without evidence of compartment syndrome. Patient also has healing lacerations to the left hand and left upper leg without evidence of infection. HEAD: Normocephalic. Atraumatic. EYES: No scleral icterus. No injection or drainage. NECK: Supple, trachea midline. No JVD or lymphadenopathy. CARDIOVASCULAR: Regular rate and rhythm without murmurs, gallops, or rubs. RESPIRATORY: Breath sounds equal bilaterally. No accessory muscle use. Lung sounds are clear to auscultation. MUSCULOSKELETAL: No cyanosis, or edema. Data Data Last Documented VS Vital Signs Date Time Temp Pulse Resp B/P (MAP) Pulse Ox O2 Delivery O2 Flow Rate FiO2 12/06/17 13:45 68 18 110/74 (86) 100 Room Air 12/06/17 12:38 98.6 MDM Medical Decision Making Medical Screen Exam Complete: Yes Emergency Medical Condition: Yes Medical Record Reviewed: Yes Differential Diagnosis Dog bite versus laceration versus cellulitis versus dehiscence versus abscess Narrative Course 37-year-old female presents to the emergency department for evaluation of dog bite to the upper extremities and left leg. The bites appear to be healing well without evidence of complication. She is to continue her antibiotic and wound care. Patient is requesting more pain medication. I instructed her I will give her a short-term refill and I will give her more of her diclofenac. Patient is to return on December 12 for suture removal. This will make it 14 days. She is to return sooner for any worsening symptoms. Diagnosis Primary Impression: Dog bite Qualified Codes: W54.0XXD - Bitten by dog, subsequent encounter Additional Impression: Lacerations of multiple sites of right arm Qualified Codes: S41.111D - Laceration without foreign body of right upper arm , subsequent encounter Referrals: Primary Care Physician call for appointment Patient Instructions: Animal Bite (ED), General Instructions Departure Forms: Tests/Procedures, Work Release Special Instructions: No pushing/pulling with right arm until sutures are removed Additional Instructions: Continue antibiotics and wound care. Return here or follow-up with your primary care physician on December 12 for removal of sutures. Return to the emergency department sooner for any worsening of symptoms. Med/Other Pt SpecificInfo: Prescription(s) given Scripts Hydrocodone-Acetaminophen ([place]) 5 Mg-325 Mg Tab 1 TAB PO Q6H Y for PAIN, #8 TAB 0 Refills Prov: Inessa Arriola 12/06/[address] (Diclofenac Sodium DR) 75 Mg Tabdr 75 MG PO BID Y for PAIN SCALE 1 TO 10, #20 TAB 0 Refills Prov: Inessa Arriola 12/06/17 Disposition: 01 DISCHARGE HOME Condition: Stable Inessa Arriola December 06, 2017 14:03
== END 2017-12-06 14:21 | disposition home or self-care (01) ==
LOC: NEPK 12:31
DX: S81.852D Open bite, left lower leg, subsequent encounter (principal); W54.0XXD Bitten by dog, subsequent encounter
CPT/HCPCS: 99281

== ENCOUNTER 2017-12-12 07:58 | Emergency (ER) | payer SELFPAY ==
[~2017-12-12 07:58] MED LIST changes: +NORC5TAB PO
[2017-12-12 08:01] VITALS: BP 102/73; PULSE 67; RESP 20; TEMP 97.7; O2SAT 99
--- NOTE | 2017-12-12 08:40 | PD ---
HPI Chief Complaint: Wound/Suture/Staple Re-Check Time Seen by Provider: 08:37 Travel History International Travel<30 days: No Contact w/Intl Traveler<30days: No Traveled to known affect area: No History of Present Illness HPI 37-year-old -[place] female presents emergency department status post dog bite on 28 November, with multiple lacerations to the right upper arm and forearm. Patient states she has been feeling well, and she has finished her antibiotics. She feels she may have a yeast infection secondary to the Augmentin. She has no complaints about the arm itself. She is here for suture removal if it is ready. Her pain is minimal. She has no known drug allergies. PFSH Past Medical History Asthma: Yes Bipolar Disorder: Yes : 3 Para: 1 Miscarriage: 0 : 2 Social History Alcohol Use: No (STATES SOBER FOR 2 YEARS) Tobacco Use: Yes (07/24 PPD) Substance Use: No (H/O; DENIES TODAY) Allergies-Medications (Allergen,Severity, Reaction): Coded Allergies: No Known Allergies (Verified Adverse Reaction, Unknown, 12/06/17) Reported Meds & Prescriptions Reported Meds & Active Scripts Active Allen (Hydrocodone-Acetaminophen) 5 Mg-325 Mg Tab 1 Tab PO Q6H PRN Diclofenac Sodium DR (Diclofenac Sodium) 75 Mg Tabdr 75 Mg PO BID PRN Hydrocodone-Acetamin 5-325 mg (Hydrocodone/Acetaminophen) 5 Mg-325 Mg Tablet 1 Tab PO Q6HR PRN Augmentin (Amoxicillin-Clavulanate) 875-125 Mg Tab 1 Tab PO BID 7 Days Review of Systems Except as stated in HPI: all other systems reviewed are Neg General / Constitutional: No: Fever Eyes: No: Visual changes HENT: No: Headaches Cardiovascular: No: Chest Pain or Discomfort Respiratory: No: Shortness of Breath Gastrointestinal: No: Abdominal Pain Genitourinary: No: Dysuria Musculoskeletal: No: Pain Skin: Positive Lesions (See history of present illness per), No Rash Neurologic: No: Weakness Psychiatric: No: Depression Endocrine: No: Polydipsia Hematologic/Lymphatic: No: Easy Bruising Physical Exam Narrative GENERAL: Patient appears in no acute distress. SKIN: Warm and dry. Normal color. Normal turgor. Patient has multiple lacerations to the right upper arm, and forearm. All lacerations appear to be well-healed without wound dehiscence or signs of infection per HEAD: Atraumatic. Normocephalic. EYES: Pupils equal and round. No scleral icterus. No injection or drainage. ENT: No nasal bleeding or discharge. Mucous membranes pink and moist. Pharynx is clear. Airways patent NECK: Trachea midline. No JVD. CARDIOVASCULAR: Regular rate and rhythm. RESPIRATORY: No accessory muscle use. Clear to auscultation. Breath sounds equal bilaterally. MUSCULOSKELETAL: Extremities without clubbing, cyanosis, or edema. No obvious deformities. NEUROLOGICAL: Awake and alert. No obvious cranial nerve deficits. Motor grossly within normal limits. Five out of 5 muscle strength in the arms and legs. Normal speech. PSYCHIATRIC: Appropriate mood and affect; insight and judgment normal. Data Data Last Documented VS Vital Signs Date Time Temp Pulse Resp B/P (MAP) Pulse Ox O2 Delivery O2 Flow Rate FiO2 12/12/17 08:01 97.7 67 20 102/73 (83) 99 MDM Medical Decision Making Medical Screen Exam Complete: Yes Emergency Medical Condition: Yes Medical Record Reviewed: Yes Differential Diagnosis Dog bite. Laceration. Suture removal. Narrative Course All sutures are removed without difficulty. Patient is given Diflucan 150 mg once for probable yeast infection Work note is given. No further medical treatment is warranted. Diagnosis Primary Impression: Encounter for removal of sutures Additional Impressions: Dog bite Qualified Codes: W54.0XXD - Bitten by dog, subsequent encounter Lacerations of multiple sites of right arm Qualified Codes: S41.111D - Laceration without foreign body of right upper arm , subsequent encounter Vaginal yeast infection Patient Instructions: General Instructions Departure Forms: Work Release Enter return to work date: December 12, 2017 Special Instructions: No pushing or pulling with the right arm for the next 4 days. Additional Instructions: All sutures are removed without difficulty. Patient is given Diflucan 150 mg once for probable yeast infection Work note is given. No further medical treatment is warranted. Med/Other Pt SpecificInfo: Wound Care Disposition: DISCHARGE HOME Condition: Stable Fawad Gillis December 12, 2017 08:40
[2017-12-12] MEDS ORDERED: DIFL150T PO (08:44)
== END 2017-12-12 09:15 | disposition home or self-care (01) ==
LOC: NEPD 07:58
DX: S41.111D Laceration without foreign body of right upper arm, subsequent encounter (principal); W54.0XXD Bitten by dog, subsequent encounter; B37.3 Candidiasis of vulva and vagina
CPT/HCPCS: 99281